=== PATIENT | female | born 1985 | race Caucasian/White ===

== ENCOUNTER 2018-01-23 16:39 | Emergency (ER) | payer MEDICAID ==
[2018-01-23] MEDS: KETOROLAC 60 MG INJ IM ×2 (18:00→19:26)
[2018-01-23] MEDS: HYDROCODONE/APAP (5/325) TAB PO (18:01)
== END 2018-01-23 20:44 | disposition home or self-care (01) ==
LOC: E/R 16:39
DX: S16.1XXA Strain of muscle, fascia and tendon at neck level, initial encounter (principal); V49.50XA Passenger injured in collision with unspecified motor vehicles in traffic accident, initial encounter
CPT/HCPCS: 72040; 81025; 96372; 99284-25